=== PATIENT | male | born 1940 | race Caucasian/White ===

== ENCOUNTER 2016-12-05 06:28 | Emergency (ER) | payer MEDICARE ==
--- NOTE | 2016-12-05 06:43 | ED Physician Documentation ---
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 Said to be his usual physical state at 0200 rounds. - ROS CONST: no problems - PAST HX Past History: other (IDDM, Dementia, Hypothyroid, Depression) Other History: other (on Xarelto for ??? CVA?) - FAMILY HX Family History: No - VITAL SIGNS Vital Signs: Vital Signs Temp Pulse Resp BP Pulse Ox 165/67 10/21/16 09:57 - REVIEWED ASSESSMENTS Nursing Assessment Reviewed: Yes Vitals Reviewed: Yes <MYKE CADENA - Last Filed: 12/05/16 06:40> - HPI Onset: hours (unkown, possibly 5 hours) Timing: still present Severity: moderate Further Comments: yes (Patient was seen by care givers at [place] at [facility] 0200. On next rounds was found to have decrease movement to his left upper and lower exremity. Patient was felt to have had another CVA and transfered to the ED for further evaluation and treatment. Patient is currently on Xeralto for a previous CVA. Patient has not had any recent history of falling. Patient is not able to communicate normally due to dementia and previous CVA.) Last known Well Date: 12/05/16 Last Known Well Time: 02:00 - ROS CONST: denies: fever - PAST HX Past History: other Other History: other Immunizations: influenza, pneumovax - SOCIAL HX Smoking History: non-smoker Alcohol Use: none Drug Use: none - VITAL SIGNS Vital Signs: Vital Signs Temp Pulse Resp BP Pulse Ox 97.9 F 100 H 21 163/66 96 12/05/16 06:32 12/05/16 07:37 12/05/16 06:32 12/05/16 06:32 12/05/16 07:37 <Reggie Olivas - Last Filed: 12/05/16 11:11> - PAST HX Allergies/Adverse Reactions: Allergies Allergy/AdvReac Type Severity Reaction Status Date / Time metformin Allergy Verified 09/12/16 17:08 niacin Allergy Verified 09/12/16 17:08 statins Allergy Uncoded 09/12/16 17:08 Home Medications: Ambulatory Orders Medication Instructions Recorded Acetaminophen [Tylenol] 325 mg PO TID 09/12/16 Citalopram Hydrobromide [Celexa] 10 mg PO D 09/12/16 Clonazepam [Klonopin] 0.25 mg PO BID 09/12/16 Cyanocobalamin [Vitamin B-12] 1,000 mcg PO D 09/12/16 Divalproex Sodium [Depakote 500 mg PO TID 09/12/16 Sprinkle] Ergocalciferol (Vitamin D2) 50,000 units PO WEEKLY AT 0600 09/12/16 [Vitamin D-2] Ezetimibe [Zetia] 10 mg PO D 09/12/16 Insulin Aspart [Novolog Flexpen] 6 units SQ AC30 09/12/16 Insulin Glargine,Hum.rec.anlog 32 units SQ AM 09/12/16 [Lantus Solostar] Lisinopril [Zestril] 40 mg PO D 09/12/16 Memantine HCl [Namenda] 20 mg PO D 09/12/16 Multivitamin [Tab-A-Isabel] 1 tab PO D 09/12/16 QUEtiapine FUMARATE [Seroquel] 50 mg PO QID 09/12/16 Rivaroxaban [Xarelto] 10 mg PO 18 09/12/16 Rivastigmine Tartrate 1.5 mg PO D 09/12/16 [Rivastigmine] Thiamine HCl 100 mg PO D 09/12/16 Tramadol HCl [Ultram] 50 mg PO TID 09/12/16 Trazodone HCl 50 mg PO HS 09/12/16 Bisacodyl [Dulcolax] 10 mg RC QD PRN 10/20/16 Calcium Carb 500/Vit D 200 1 each PO DAILY 10/20/16 [Caltrate with Vit D] LORazepam [Ativan] 2 mg IJ Q6H PRN 10/20/16 Levothyroxine Sodium [Synthroid] 37.5 mcg PO 0700 10/20/16 QUEtiapine FUMARATE [Seroquel] 25 mg PO Q4H PRN 10/20/16 Progress - Progress Progress: 0650, care to Dr. Oliavs. <MYKE CADENA - Last Filed: 12/05/16 06:40> - Results/Orders Results/Orders: 10:29 The family members and guardian are here. They want patient to be transferred to [facility] for comfort/hospice care. They want patient to be closer to family members. We are trying to make arrangements for that to happen. <Reggie Olivas - Last Filed: 12/05/16 11:11> ED Results Lab/Radiology - Orders Orders: ED Orders Category Date Time Status Continuous EKG monitoring Q1H Care 12/05/16 06:38 Ordered Continuous Pulse Oximetry Q1H Care 12/05/16 06:[address] Saline Lock/IV Now Care 12/05/16 06:38 Ordered Urinary catheterization 1T Care 12/05/16 06:[address] BRAIN W/O CONTRAST Stat Exams 12/05/16 Ordered CBC/PLATELET/DIFF Routine Lab 12/05/16 Ordered CMP Routine Lab 12/05/16 Ordered PT-INR Routine Lab 12/05/16 Ordered TROPONIN I (cTnI) Stat Lab 12/05/16 Ordered URINALYSIS Routine Lab 12/05/16 Ordered EKG WITH COMPARISON Stat Ther 12/05/16 Ordered <MYKE CADENA - Last Filed: 12/05/16 06:40> - Lab Results Lab Results: Lab Results 12/05/16 12/05/16 07:20 07:20 WBC 5.90 K/ul K/ul (4.00-12.00) RBC 4.34 M/ul M/ul (3.90-5.20) Hgb 13.1 g/dL g/dL (12.0-18.0) Hct 41.6 % % (37.0-53.0) MCV 95.8 fl fl (80.0-100.0) MCH 30.1 pg pg (28.0-34.0) MCHC 31.4 g/dL g/dL (30.0-36.0) RDW 14.2 % % (11.3-14.3) Plt Count 158 K/mm3 K/mm3 (130-400) Neut % (Auto) 55.1 % % (39.0-79.0) Lymph % (Auto) 32.1 % % (16.0-50.0) [place] % (Auto) 6.5 % % (0.0-11.0) Eos % (Auto) 3.9 % % (0.0-6.8) Baso % (Auto) 0.3 (0.0-1.5) Neut # 3.3 # k/uL # k/uL (1.4-7.7) Lymph # 1.9 # k/uL # k/uL (0.6-4.0) [place] # 0.4 # k/uL # k/uL (0.0-0.9) Eos # 0.2 # k/uL # k/uL (0.0-0.6) Baso # 0.0 # k/uL # k/uL (0.0-0.5) Reactive Lymphs % 2.0 % % (0.0-5.0) Reactive Lymphs # 0.1 # k/uL # k/uL (0.0-0.8) PT 12.0 Seconds H Seconds (9.7-11.5) INR 1.1 (0.9-1.1) - Radiology Radiology Impressions: CT scan of head: 3x4cm right hemispheric hemorrhagic CVA with bleeding into the ventricle and small subachranoid blood noted - Orders Orders: ED Orders Category Date Time Status Continuous EKG monitoring Q1H Care 12/05/16 06:38 Active Continuous Pulse Oximetry Q1H Care 12/05/16 06:[address] Saline Lock/IV Now Care 12/05/16 06:38 Active Urinary catheterization 1T Care 12/05/16 06:[address] BRAIN W/O CONTRAST Stat Exams 12/05/16 Ordered CBC/PLATELET/DIFF Routine Lab 12/05/16 07:20 Completed CMP Routine Lab 12/05/16 07:20 Received PT-INR Routine Lab 12/05/16 07:20 Completed TROPONIN I (cTnI) Stat Lab 12/05/16 07:20 Received URINALYSIS Routine Lab 12/05/16 Ordered Chem Sticks Med 12/05/16 06:54 Discontinued 1 each NOW ONE EKG WITH COMPARISON Stat Ther 12/05/16 Completed <Reggie Olivas - Last Filed: 12/05/16 11:11> General Adult Physical Exam - PHYSICAL EXAM GENERAL APPEARANCE: no distress EENT: eye inspection normal, ENT inspection normal (except left mouth does not move ) NECK: normal inspection, supple RESPIRATORY: no resp distress, breath sounds normal, wheezes (fine, throughout) CVS: reg rate & rhythm, heart sounds normal ABDOMEN: soft, normal bowel sounds RECTAL: deferred SKIN: warm/dry, normal color EXTREMITIES: no evidence of injury, no edema, other (left arm and hand flaccid. left foot with increased plantar flexion. Unable to test muscle strength as patient cannot cooperate with exam. No patellar reflex on left, 1-2+ on right. Right arm with spontaneous motion. Picks at equipment, examiner with left hand. ) NEURO: CN's nml as tested, other (does not verbalize) <MYKE CADENA - Last Filed: 12/05/16 06:40> - PHYSICAL EXAM EENT: no signs of dehydration CVS: equal pulses NEURO: asymmetric reflexes, other (does not verbalize, patient has weakness ot the LUE, is having some left facial drooping, up going left babinski,). No: motor nml, cognition normal <Reggie Olivas - Last Filed: 12/05/16 11:11> Discharge <MYKE CADENA - Last Filed: 12/05/16 06:40> Decision to Admit: NO Date of Decison to Admit: 12/05/16 Decision Time: 07:54 <Reggie Olivas - Last Filed: 12/05/16 11:11> Clincal Impression: Nontraumatic hemorrhage of right cerebral hemisphere Referrals: Raj Staples MD [Primary Care Provider] - 2 Days Additional Instructions: This most likely will be a terminal event for the patient. Plan would be for comfort measures. Patient's guardian, spouse and daughter have been notified by myself. Home Medications: Ambulatory Orders Acetaminophen [Tylenol] 325 mg PO TID 09/12/16 Citalopram Hydrobromide [Celexa] 10 mg PO D 09/12/16 Clonazepam [Klonopin] 0.25 mg PO BID 09/12/16 Cyanocobalamin [Vitamin B-12] 1,000 mcg PO D 09/12/16 Divalproex Sodium [Depakote Sprinkle] 500 mg PO TID 09/12/16 Ergocalciferol (Vitamin D2) [Vitamin D-2] 50,000 units PO WEEKLY AT 0600 Ezetimibe [Zetia] 10 mg PO D 09/12/16 Insulin Aspart [Novolog Flexpen] 6 units SQ AC30 09/12/16 Insulin Glargine,Hum.rec.anlog [Lantus Solostar] 32 units SQ AM 09/12/16 Lisinopril [Zestril] 40 mg PO D 09/12/16 Memantine HCl [Namenda] 20 mg PO D 09/12/16 Multivitamin [Tab-A-Isabel] 1 tab PO D 09/12/16 QUEtiapine FUMARATE [Seroquel] 50 mg PO QID 09/12/16 Rivaroxaban [Xarelto] 10 mg PO 18 09/12/16 Rivastigmine Tartrate [Rivastigmine] 1.5 mg PO D 09/12/16 Thiamine HCl 100 mg PO D 09/12/16 Tramadol HCl [Ultram] 50 mg PO TID 09/12/16 Trazodone HCl 50 mg PO HS 09/12/16 Bisacodyl [Dulcolax] 10 mg RC QD PRN 10/20/16 Calcium Carb 500/Vit D 200 [Caltrate with Vit D] 1 each PO DAILY 10/20/16 LORazepam [Ativan] 2 mg IJ Q6H PRN 10/20/16 Levothyroxine Sodium [Synthroid] 37.5 mcg PO 0700 10/20/16 QUEtiapine FUMARATE [Seroquel] 25 mg PO Q4H PRN 10/20/16 Condition: Critical Disposition: [facility]
[2016-12-05 07:27] LABS: BASOPHILS % 0.3 (0.0-1.5); EOSINOPHILS % 3.9 % (0.0-6.8); LYMPHOCYTES # 1.9 # k/uL (0.6-4.0); MEAN CORPUSCULAR HEMOGLOBIN 30.1 pg (28.0-34.0); MONOCYTES # 0.4 # k/uL (0.0-0.9); MONOCYTES % 6.5 % (0.0-11.0); NEUTROPHILS # 3.3 # k/uL (1.4-7.7)
[2016-12-05 07:41] LABS: eGFR (African) > 60; eGFR (Non-African) > 60
[2016-12-05 11:24] VITALS: BP 184/72
--- NOTE | 2016-12-05 11:45 | Diagnostic Imaging Report ---
[facility] [id number] [facility].[address] [address] Report Submission Date: Dec 05, 2016 7:27:46 AM HYDROSTATIC TUBING TESTER Patient Study Name: CLAIRE URIBE Date: Dec 05, 2016 7:03:16 AM HYDROSTATIC TUBING TESTER Modality Type: CT\SR Gender: M Description: CT BRAIN W/O CONTRAST : 38 Institution: [facility] Physician: SURINDER STRINGER CT head without contrast History: Weakness Technique: 5 mm images through the brain were obtained without contrast. Findings: There is a 3.5 cm acute right parietal intracerebral hemorrhage. There is intraventricular extension with a large amount of blood in the right lateral ventricle. There is a tiny amount of subarachnoid blood. There is no epidural hemorrhage. There is significant mass effect with effacement of cortical sulci in the right parietal region. There is no midline shift. The ventricles and cortical sulci are significantly enlarged, consistent with atrophy. Lucency in the periventricular white matter indicates microvascular ischemic change. Findings were communicated to the ordering physician at the time of interpretation. Since 12 September 2016, hemorrhage is new. Impression: 1. Large right parietal intracerebral hemorrhage large amount of intraventricular blood. 2. Cerebral atrophy and small vessel disease. Electronically signed on Dec 05, 2016 7:27:46 AM HYDROSTATIC TUBING TESTER by: Husam HOFFMAN
== END 2016-12-05 11:20 ==
LOC: ED 06:28
DX: I62.9 Nontraumatic intracranial hemorrhage, unspecified (principal)
CPT/HCPCS: 70450; 80053; 84484; 85025; 85610; 99283; S1016